=== PATIENT | male | born 1970 | race Caucasian/White ===

== ENCOUNTER 2019-05-24 11:30 | Emergency (ER) | payer BC ==
[2019-05-24] MEDS ORDERED: Ondansetron 4 MG/2 ML SDV IVPUSH ONE (11:46)
[2019-05-24] MEDS ORDERED: fentaNYL 100 MCG/2 ML SDV IVPUSH ONE ×2 (11:46→12:28)
--- NOTE | 2019-05-24 11:50 | EDM.PDOC ---
ED HPI GENERAL MEDICAL PROBLEM - General Chief Complaint: Headache Stated Complaint: TERRIBLE HEADACHE SINCE 7:30 Time Seen by Provider: 05/24/19 11:46 Source of Information: Reports: Patient, Family, RN Notes Reviewed History Limitations: Reports: No Limitations - History of Present Illness INITIAL COMMENTS - FREE TEXT/NARRATIVE: 48-year-old gentleman presents emergency department a complaint of headache, he does have a history of migraines however is not had a migraine in over 10years this 1 is by far the most severe, he states it feels like migraines in the past but it has not resolved and it is more intense. Does have nausea and vomiting photophobia he has difficulty finding a comfortable position Frontal Pain Score (Numeric/FACES): 8 - Related Data Allergies Allergy/AdvReac Type Severity Reaction Status Date / Time No Known Allergies Allergy Verified 05/24/19 11:44 Home Meds: Home Meds NK [No Known Home Meds] 05/24/19 [History] Past Medical History Neurological History: Reports: Migraines Oncologic (Cancer) History: Reports: Other (See Below) (Melanoma) - Past Surgical History HEENT Surgical History: Reports: Other (See Below) Other HEENT Surgeries/Procedures: wisdom tooth removal Dermatological Surgical History: Reports: Other (See Below) Social & Family History - Tobacco Use Smoking Status *Q: Never Smoker - Caffeine Use Caffeine Use: Reports: Coffee - Recreational Drug Use Recreational Drug Use: No ED ROS GENERAL - Review of Systems Review Of Systems: See Below Constitutional: Reports: No Symptoms HEENT: Reports: Eye Pain Respiratory: Reports: No Symptoms Cardiovascular: Reports: No Symptoms GI/Abdominal: Reports: Nausea, Vomiting Neurological: Reports: Headache - Physical Exam Exam: See Below Exam Limited By: No Limitations General Appearance: Alert, WD/WN, No Apparent Distress Eye Exam: Bilateral Eye: EOMI, Normal Fundi, Normal Inspection, PERRL Head Exam: Atraumatic, Normocephalic Respiratory/Chest: No Respiratory Distress Neuro Exam (Abbreviated): No Motor/Sensory Deficits Course - Vital Signs Last Recorded V/S: Last Vital Signs Temp 96.1 F L 05/24/19 11:38 Pulse 69 05/24/19 15:39 Resp 16 05/24/19 14:36 BP 159/87 H 05/24/19 15:39 Pulse Ox 98 05/24/19 14:36 - Orders/Labs/Meds Orders: Active Orders 24 hr Category Date Time Status Peripheral IV Care [RC] . DIRECTED Care 05/24/19 11:47 Active Peripheral IV Care [RC] . DIRECTED Care 05/24/19 12:49 Active Sodium Chloride 0.9% [Saline Flush] Med 05/24/19 11:46 Active 10 ml FLUSH ASDIRECTED PRN Sodium Chloride 0.9% [Saline Flush] Med 05/24/19 12:49 Active 10 ml FLUSH ASDIRECTED PRN Peripheral IV Insertion Adult [OM.PC] Urgent Oth 05/24/19 11:46 Ordered Peripheral IV Insertion Adult [OM.PC] Urgent Oth 05/24/19 12:48 Ordered Medication Orders Sodium Chloride (Saline Flush) 10 ml FLUSH ASDIRECTED PRN PRN Reason: Keep Vein Open Last Admin: 05/24/19 16:52 Dose: 10 ml Admin: 05/24/19 14:30 Dose: 10 ml Admin: 05/24/19 12:03 Dose: 10 ml Admin: 05/24/19 12:02 Dose: 10 ml Sodium Chloride (Saline Flush) 10 ml FLUSH ASDIRECTED PRN PRN Reason: Keep Vein Open Meds: Medications Generic Name Dose Route Start Last Admin Trade Name Freq PRN Reason Stop Dose Admin Sodium Chloride 10 ml 05/24/19 11:46 05/24/19 16:52 Saline Flush FLUSH 10 ml ASDIRECTED PRN Administration Keep Vein Open Sodium Chloride 10 ml 05/24/19 12:49 Saline Flush FLUSH ASDIRECTED PRN Keep Vein Open Discontinued Medications Generic Name Dose Route Start Last Admin Trade Name Freq PRN Reason Stop Dose Admin Dexamethasone 4 mg 05/24/19 14:14 05/24/19 14:30 Dexamethasone IVPUSH 05/24/19 14:15 4 mg ONETIME ONE Administration Diphenhydramine HCl 50 mg 05/24/19 12:49 05/24/19 12:56 Benadryl IVPUSH 05/24/19 12:50 50 mg ONETIME ONE Administration Fentanyl 50 mcg 05/24/19 11:46 05/24/19 12:02 Sublimaze IVPUSH 05/24/19 11:47 50 mcg ONETIME ONE Administration Fentanyl 100 mcg 05/24/19 12:28 05/24/19 12:32 Sublimaze IVPUSH 05/24/19 12:29 100 mcg ONETIME ONE Administration Haloperidol Lactate 5 mg 05/24/19 14:14 05/24/19 14:30 Haldol IVPUSH 05/24/19 14:15 5 mg ONETIME ONE Administration Lactated Ringer's 1,000 mls @ 999 mls/hr 05/24/19 12:48 05/24/19 12:56 Ringers, Lactated IV 05/24/19 13:48 999 mls/hr BOLUS ONE Administration Valproic Acid 1,000 mg/ Sodium 60 mls @ 50 mls/hr 05/24/19 15:16 05/24/19 15: 29 Chloride IV 05/24/19 16:15 50 mls/hr ONETIME ONE Administration Ketorolac Tromethamine 30 mg 05/24/19 12:48 05/24/19 12:56 Toradol IVPUSH 05/24/19 12:49 30 mg ONETIME ONE Administration Lorazepam 1 mg 05/24/19 16:38 05/24/19 16:48 Ativan IVPUSH 05/24/19 16:39 1 mg ONETIME ONE Administration Ondansetron HCl 4 mg 05/24/19 11:46 05/24/19 12:02 Zofran IVPUSH 05/24/19 11:47 4 mg ONETIME ONE Administration - Re-Assessments/Exams Free Text/Narrative Re-Assessment/Exam: 05/24/19 12:50 He had some relief with the fentanyl provided for pain I did review CAT scan with him which was negative for any acute intracranial abnormality. However because of the possibility his CT scan does not rule out subarachnoid hemorrhage I counseled him on the use of lumbar puncture he declined at this time felt this is more migraine type would like to try migraine treatment before pursuing lumbar puncture. Departure - Departure Time of Disposition: 17:08 Disposition: Home, Self-Care 01 Condition: Fair Clinical Impression: Migraine - Discharge Information Instructions: Migraine Headache, [id number] Referrals: PCP,None [Primary Care Provider] - Forms: ED Department Discharge Additional Instructions: Continue with your regular medications, please followup with your primary care provider in 3-5 days if not better, please call return to the emergency department with worsening of symptoms. Sepsis Event Note - Evaluation Sepsis Screening Result: No Definite Risk - Focused Exam Vital Signs: Vital Signs Temp Pulse Resp BP Pulse Ox 05/24/19 15:39 69 159/87 H 05/24/19 14:36 71 16 154/94 H 98 05/24/19 11:38 96.1 F L 68 16 183/104 H 97 Date Exam was Performed: 05/24/19 Time Exam was Performed: 17:06 - My Orders Last 24 Hours: My Active Orders 05/24/19 11:46 Sodium Chloride 0.9% [Saline Flush] 10 ml FLUSH ASDIRECTED PRN Peripheral IV Insertion Adult [OM.PC] Urgent 05/24/19 11:47 Peripheral IV Care [RC] . DIRECTED 05/24/19 12:48 Peripheral IV Insertion Adult [OM.PC] Urgent 05/24/19 12:49 Peripheral IV Care [RC] . DIRECTED Sodium Chloride 0.9% [Saline Flush] 10 ml FLUSH ASDIRECTED PRN - Assessment/Plan Last 24 Hours: My Active Orders 05/24/19 11:46 Sodium Chloride 0.9% [Saline Flush] 10 ml FLUSH ASDIRECTED PRN Peripheral IV Insertion Adult [OM.PC] Urgent 05/24/19 11:47 Peripheral IV Care [RC] . DIRECTED 05/24/19 12:48 Peripheral IV Insertion Adult [OM.PC] Urgent 05/24/19 12:49 Peripheral IV Care [RC] . DIRECTED Sodium Chloride 0.9% [Saline Flush] 10 ml FLUSH ASDIRECTED PRN Plan: Assessment Acuity = acute Site and laterality = migraine Etiology = unknown Manifestations = none Location of injury = Home Lab values = CT scan head shows no acute process Plan I counseled him again on the possibility of intracranial hemorrhage and discussed lumbar puncture he declined at this time would like to do watchful waiting. He did get significant relief following the migraine algorithm he was also provided 1 mg Ativan which made him comfortable enough that he felt he could go home and rest, follow-up primary care 3 to 5 days if not better or return to the emergency department worsening of symptoms This note was dictated using [employer] voice recognition software please call with any questions on syntax or grammar.
[2019-05-24] MEDS: Sodium Chloride 0.9% 10 ML Syringe FLUSH PRN ×4 (12:02→16:52)
--- NOTE | 2019-05-24 12:28 | CT ---
Head wo Cont CLINICAL HISTORY: Severe headache COMPARISON: None TECHNIQUE: Transverse scans were obtained from the base of the skull through the vertex without IV contrast on a multislice, multidetector CT scanner. Auto dosage reduction and iterative reconstruction techniques employed. FINDINGS: No focal abnormal parenchymal density is identified. There is no mass effect, hemorrhage, or extraaxial collection. The basal cisterns and sulci over the convexities are mildly prominent. The ventricles are normal for age. The visualized paranasal sinuses and mastoids are well aerated. IMPRESSION: Mild age-related atrophy No focal lesion, hemorrhage or extra-axial collection
[2019-05-24] MEDS ORDERED: Ketorolac 30 MG/ML SDV IVPUSH ONE (12:48)
[2019-05-24] MEDS ORDERED: Lactated Ringers 1,000 ML IV ONE (12:48)
[2019-05-24] MEDS ORDERED: diphenhydrAMINE 50 MG/ML SDV IVPUSH ONE (12:49)
[2019-05-24] MEDS ORDERED: Sodium Chloride 0.9% 10 ML Syringe FLUSH PRN (12:49)
[2019-05-24] MEDS ORDERED: Haloperidol Lactate 5 MG/ML SDV IVPUSH ONE (14:14)
[2019-05-24] MEDS ORDERED: Dexamethasone 4 MG/ML SDV IVPUSH ONE (14:14)
[2019-05-24] MEDS ORDERED: LORazepam 2 MG/ML SDV IVPUSH ONE (16:38)
== END 2019-05-24 17:19 | disposition home or self-care (01) ==
LOC: JP.ED 11:30
DX: G43.909 Migraine, unspecified, not intractable, without status migrainosus (principal)
CPT/HCPCS: 70450; 96361; 96365; 96375; 99284; J1100; J1200; J1630; J1885; J2060; J2405; J3010; J7050; J7120; J3490